=== PATIENT | male | born 1950 | race Caucasian/White ===

== ENCOUNTER 2018-07-13 14:24 | Emergency (ER) | payer MEDICARE ==
--- NOTE | 2018-07-13 17:22 | CT ---
CT OF THE BRAIN WITHOUT CONTRAST: Date: 07/13/[address] was done following trauma. There are no prior studies available for comparison. FINDINGS: The ventricles are normal in size with no shift. No intracranial bleeding or extra-axial hematoma see n. There is no sign of acute stroke, mass, or edema. Some minimal patchy white matter lucency is prob ably due to minor chronic ischemic changes. The visible paranasal sinuses and mastoid air cells are clear. No sign of skull fracture. Attention i s drawn to slice 26 where one sees several irregularities in the inner table of the skull near its ve rtex. Most have the appearance of arachnoid granulations. One on the right side appears to be larger and erode further into the calvarium, possibly through the outer table. I do not see multiple lucenci es in the remainder of the skull to suggest myeloma. This is probably just a very unusual arachnoid g ranulation and consultation with other radiologists felt the same. Nevertheless, if there is pain or tenderness here, or other history that suggests a need to follow-up a potentially lytic lesion, then a MRI to remove all doubt would be in order. IMPRESSION: Probably negative study. See discussion above. Findings discussed with Dr. Albert at 1525 hours on 07/13/18. CODE CR. POS: HOME
== END 2018-07-13 15:40 | disposition home or self-care (01) ==
LOC: BURERS 14:24
DX: S00.03XA Contusion of scalp, initial encounter (principal); I10 Essential (primary) hypertension; W20.8XXA Other cause of strike by thrown, projected or falling object, initial encounter
CPT/HCPCS: 70450